=== PATIENT | female | born 1970 | race Caucasian/White ===

== ENCOUNTER 2016-10-18 20:21 | Emergency (ER) | payer OTHER ==
--- NOTE | ~2016-10-18 | EKG ---
PATIENT: JOSE A MALAGON UNIT #: [id number] Ventricular Rate: 129 BPM Atrial Rate: 129 BPM P-R Interval: 126 ms QRS Duration: 68 ms Q-T Interval: 302 ms QTC Calculation(Bezet): 442 ms P [place]: 70 degrees Calculated R [place]: 73 degrees Calculated T [place]: 79 degrees Diagnosis Line: Sinus tachycardia Diagnosis Line: Otherwise normal ECG Diagnosis Line: No previous ECGs available Diagnosis Line: Confirmed by SHABANA MCKEON MD ([id number]) on 10/19/2016 Diagnosis Line: 10:39:39 AM INTERPRETING MD: LINDA MONTANA
[~2016-10-18 20:21] MED LIST: ALBUTEROL17 GM INH; ANIMAL SHAPES1 EAC2 PO; ULTRAM PO
== END 2016-10-18 22:10 | disposition left against medical advice (07) ==
LOC: CED 20:21
DX: Z53.21 Procedure and treatment not carried out due to patient leaving prior to being seen by health care provider (principal)
CPT/HCPCS: 93005

== ENCOUNTER 2017-02-02 09:39 | Emergency (ER) | payer OTHER ==
[~2017-02-02] VITALS: Ht 167.6 cm; Wt 64.0 kg
== END 2017-02-02 10:44 | disposition home or self-care (01) ==
LOC: CFTX 09:39 → CED 09:39 → CFTX 10:14
DX: L03.211 Cellulitis of face (principal); J45.909 Unspecified asthma, uncomplicated; Z90.710 Acquired absence of both cervix and uterus; Z98.890 Other specified postprocedural states; F17.210 Nicotine dependence, cigarettes, uncomplicated; Z88.0 Allergy status to penicillin; Z88.8 Allergy status to other drugs, medicaments and biological substances; Z91.09 Other allergy status, other than to drugs and biological substances; Z79.899 Other long term (current) drug therapy; Z88.6 Allergy status to analgesic agent
CPT/HCPCS: 10060; 87070; 87077; 87186; 87205; 99283

== ENCOUNTER 2017-02-04 11:32 | Emergency (ER) | payer OTHER ==
[~2017-02-04] VITALS: Ht 167.6 cm; Wt 65.8 kg
== END 2017-02-04 12:50 | disposition home or self-care (01) ==
LOC: CED 11:32
DX: L02.01 Cutaneous abscess of face (principal); J45.909 Unspecified asthma, uncomplicated; F17.200 Nicotine dependence, unspecified, uncomplicated; Z88.0 Allergy status to penicillin; Z98.51 Tubal ligation status; Z90.710 Acquired absence of both cervix and uterus; Z88.6 Allergy status to analgesic agent; Z88.8 Allergy status to other drugs, medicaments and biological substances
CPT/HCPCS: 96372; 99283